=== PATIENT | male | born 1950 | race Caucasian/White ===

== ENCOUNTER 2017-08-21 10:35 | Emergency (ER) | payer OTHER ==
[2017-08-21] MEDS: SOD CHLORIDE 0.9% 1,000 ML IV (14:30)
[2017-08-21] MEDS: HYDROmorphONE 1 MG/ML SYG IV (14:42)
[2017-08-21 14:55] LABS: ADD MAN DIFF? NO
[2017-08-21 14:57] LABS: WHITE BLOOD COUNT 16.1 10^3/ul (4.8-10.8)
[2017-08-21 14:57] LABS: BASOPHILS % 0.2 % (0.0-2.0); EOSINOPHILS % 0.1 % (0.0-7.0); HEMATOCRIT 40.2 % (42.0-52.0); HEMOGLOBIN 13.6 g/dl (14.0-18.0); LYMPHOCYTES # 0.6 10^3/ul (0.8-2.9); LYMPHOCYTES % 3.9 % (15.0-51.0); MEAN CORPUSCULAR HEMOGLOBIN 31.8 pg (29.0-33.0); MEAN CORPUSCULAR HGB CONC 33.8 g/dl (32.0-37.0); MEAN CORPUSCULAR VOLUME 93.9 fl (82.0-101.0); MEAN PLATELET VOLUME 8.6 fl (7.4-10.4); MONOCYTE # 0.9 10^3/ul (0.3-0.9); MONOCYTES % 5.5 % (0.0-11.0); NEUTROPHIL # 14.4 10^3/ul (1.6-7.5); NEUTROPHILS % 89.7 % (39.0-77.0); PLATELET COUNT 394 10^3/UL (140-415); RED BLOOD COUNT 4.28 10^6/ul (4.70-6.10); RED CELL DISTRIBUTION WIDTH 14.7 % (11.5-14.5)
[2017-08-21 15:24] LABS: ANION GAP 28 (8-16); BLOOD UREA NITROGEN 73 mg/dl (7-20); CALCIUM 10.1 mg/dl (8.4-10.2); CARBON DIOXIDE 25 mmol/L (21-31); CHLORIDE 85 mmol/L (97-110); GLUCOSE 107 mg/dl (70-220); POTASSIUM 4.5 mmol/L (3.5-5.1); SODIUM 133 mmol/L (135-144)
[2017-08-21 15:36] LABS: CREATININE 6.57 mg/dl (0.61-1.24)
[2017-08-21] MEDS: HYDROmorphONE 2 MG/ML SYG IM (15:41)
[2017-08-21] MEDS ORDERED: PIPER-TAZO 2.25 GM (PMX) 50 ML IVPB (17:00)
== END 2017-08-21 17:47 | disposition left against medical advice (07) ==
LOC: E/R 10:35
DX: K40.30 Unilateral inguinal hernia, with obstruction, without gangrene, not specified as recurrent (principal); D64.9 Anemia, unspecified; D63.1 Anemia in chronic kidney disease; N18.9 Chronic kidney disease, unspecified
CPT/HCPCS: 74176; 80048; 85025; 96372; 96374; 99285-25

== ENCOUNTER 2017-08-23 13:31 | Inpatient (IN) | payer OTHER ==
[2017-08-23 14:35] LABS: ADD MAN DIFF? NO
[2017-08-23 14:40] LABS: WHITE BLOOD COUNT 15.8 10^3/ul (4.8-10.8)
[2017-08-23 14:40] LABS: ABNORMAL IP MESSAGE 1; BASOPHILS % 0.2 % (0.0-2.0); EOSINOPHILS % 0.1 % (0.0-7.0); HEMATOCRIT 37.3 % (42.0-52.0); HEMOGLOBIN 12.9 g/dl (14.0-18.0); LYMPHOCYTES # 0.6 10^3/ul (0.8-2.9); MEAN CORPUSCULAR HEMOGLOBIN 31.4 pg (29.0-33.0); MEAN CORPUSCULAR HGB CONC 34.6 g/dl (32.0-37.0); MEAN CORPUSCULAR VOLUME 90.8 fl (82.0-101.0); MONOCYTE # 1.6 10^3/ul (0.3-0.9); MONOCYTES % 10.2 % (0.0-11.0); NEUTROPHIL # 13.5 10^3/ul (1.6-7.5); NEUTROPHILS % 85.2 % (39.0-77.0); PLATELET COUNT 435 10^3/UL (140-415); POSITIVE DIFF @See below; RED BLOOD COUNT 4.11 10^6/ul (4.70-6.10); RED CELL DISTRIBUTION WIDTH 14.6 % (11.5-14.5)
[2017-08-23] MEDS: LIDOCAINE 1% (MPF) 5 ML VIAL SC (15:00)
[2017-08-23 15:06] LABS: ALANINE AMINOTRANSFERASE 32 IU/L (13-69); ALBUMIN 4.7 g/dl (3.3-4.9); ALBUMIN/GLOBULIN RATIO 1.27; ALKALINE PHOSPHATASE 98 IU/L (42-121); ANION GAP 36 (8-16); ASPARTATE AMINO TRANSFERASE 19 IU/L (15-46); CALCIUM 9.4 mg/dl (8.4-10.2); CARBON DIOXIDE 22 mmol/L (21-31); CHLORIDE 81 mmol/L (97-110); GLUCOSE 83 mg/dl (70-220); LIPASE 173 U/L (23-300); POTASSIUM 5.8 mmol/L (3.5-5.1); SODIUM 133 mmol/L (135-144); TOTAL PROTEIN 8.4 g/dl (6.1-8.1)
[2017-08-23 15:13] LABS: ETHANOL < 10.0 mg/dl; LACTIC ACID 2.3 mmol/L (0.5-2.0)
[2017-08-23 15:14] LABS: BLOOD UREA NITROGEN 122 mg/dl (7-20); CREATININE 9.36 mg/dl (0.61-1.24)
[2017-08-23 15:17] LABS: TROPONIN-I 0.035 ng/ml (0.00-0.12)
[2017-08-23] MEDS: ALBUTEROL 0.5% (NEB) 2.5 MG/0.5 ML AMP INH (15:42)
[2017-08-23] MEDS: SOD CHLORIDE 0.9% 1,000 ML IV (15:52)
[2017-08-23] MEDS: INSULIN REGULAR, HUMAN 100 UNIT/1 ML 3ML VIAL IV (15:53)
[2017-08-23] MEDS: ONDANSETRON 4 MG INJ IV (16:36)
[2017-08-23] MEDS: GLUCAGON 1 MG INJ IM (16:37)
[2017-08-23] MEDS: SOD CHLORIDE 0.9% 2,250 ML IV (16:37)
[2017-08-23] MEDS: DEXTROSE 50% 50 ML SYRINGE IV (16:37)
[2017-08-23] MEDS: PIPER-TAZO 2.25 GM (PMX) 50 ML IVPB (16:58)
[2017-08-23] MEDS: HYDROmorphONE 1 MG/ML SYG IV (17:59)
[2017-08-23] MEDS: LORAZEPAM 2 MG INJ IV (17:59)
[2017-08-23] MEDS ORDERED: SOD CHLORIDE 0.9% 2,250 ML IV (18:30)
[2017-08-23] MEDS ORDERED: VANCOMYCIN IV PER PHARMACY XX (18:30)
[2017-08-23] MEDS ORDERED: CASPOFUNGIN 70 MG in SOD CHLORIDE 0.9% 250 ML IVPB (18:30)
[2017-08-23] MEDS ORDERED: NORepinephrine 8MG/250 ML (PMX 250 ML IV (18:30)
[2017-08-23] MEDS: HALOPERIDOL 5 MG INJ IM (18:46)
[2017-08-23] MEDS ORDERED: ALBUTEROL/IPRATROPIUM (NEB) 3 ML AMP HHN (19:00)
[2017-08-23] MEDS ORDERED: LORAZEPAM 2 MG INJ IV (19:00)
[2017-08-23] MEDS ORDERED: IPRATROPIUM (NEB) 0.5 MG/2.5 ML AMP NEB (19:00)
[2017-08-23] MEDS ORDERED: HYDROmorphONE 0.5 MG/0.5 ML SYG IV (19:00)
[2017-08-23] MEDS ORDERED: ONDANSETRON 4 MG INJ IV (19:00)
[2017-08-23] MEDS: DIPHENHYDRAMINE 50 MG INJ IV (19:02)
[2017-08-23] MEDS ORDERED: LIDOCAINE 1% (MPF) 30 ML INJ (19:23)
[2017-08-23] MEDS ORDERED: HYDROmorphONE 1 MG/ML SYG IV ×2 (19:30→23:00)
[2017-08-23] MEDS ORDERED: LACTATED RINGER'S 1,000 ML IV (19:30)
[2017-08-23] MEDS ORDERED: HALOPERIDOL 5 MG INJ IM (19:30)
[2017-08-23] MEDS: MIDAZOLAM 1 MG/ML 2 ML INJ IV (19:40)
[2017-08-23] MEDS: MIDAZOLAM (DRIP) 50 mg/50 mL 50 ML IV (19:56)
[2017-08-23] MEDS ORDERED: SODIUM BICARBONATE (IV ADD) 150 MEQ in DEXTROSE 5% 1,000 ML IVPB (20:00)
[2017-08-23] MEDS ORDERED: VANCOMYCIN 1 GM (PMX) 250 ML IVPB (20:00)
[2017-08-23] MEDS: NORepinephrine 8MG/250 ML (PMX 250 ML IV (20:01)
[2017-08-23] MEDS ORDERED: GLUCAGON 1 MG INJ IM (20:30)
[2017-08-23] MEDS ORDERED: GLUCOSE GEL 15 GRAM TUBE PO ×2 (20:30)
[2017-08-23] MEDS ORDERED: GLUCOSE GEL 15 GRAM TUBE BUCCAL (20:30)
[2017-08-23] MEDS ORDERED: DEXTROSE 50% 50 ML SYRINGE IV ×2 (20:30)
[2017-08-23] MEDS: ALBUTEROL/IPRATROPIUM (NEB) 3 ML AMP HHN (20:39)
[2017-08-23 22:14] LABS: LACTIC ACID 1.4 mmol/L (0.5-2.0)
[2017-08-23 22:21] LABS: CREATINE KINASE 266 IU/L (23-200)
[2017-08-23 22:24] LABS: PHOSPHORUS 10.4 mg/dl (2.5-4.9)
[2017-08-23 22:24] LABS: ANION GAP 27 (8-16); BLOOD UREA NITROGEN 119 mg/dl (7-20); C-REACTIVE PROTEIN 8.6 mg/dl (0.0-0.9); CALCIUM 7.8 mg/dl (8.4-10.2); CARBON DIOXIDE 20 mmol/L (21-31); CHLORIDE 92 mmol/L (97-110); GLUCOSE 113 mg/dl (70-220); SODIUM 134 mmol/L (135-144); URIC ACID 12.2 mg/dl (3.1-7.9)
[2017-08-23 22:30] LABS: CREATININE 8.54 mg/dl (0.61-1.24)
[2017-08-23 22:35] LABS: CK INDEX 5.1; TROPONIN-I 0.046 ng/ml (0.00-0.12)
[2017-08-23 22:56] LABS: IONIZED CALCIUM 0.9 mmol/L (1.1-1.4)
[2017-08-24] MEDS ORDERED: ETOMIDATE 20 MG INJ
[2017-08-24 00:05] LABS: AADO2 Arterial 520.4 mmHg (7.0-24.0); Allen Test ACCEPTAB; Arterial Base Excess -2.3 mmol/L (-3.0-3); Arterial Blood Gas Oxygen Sat 97.5 mmHG (95.0-98.0); Arterial COHb 0.1 % (0.0-3.0); Arterial Fraction of Oxyhgb 97.1 % (93.0-99.0); Arterial HCO3 26.4 mmol/L (22.0-26.0); Arterial MetHb 0.3 % (0.0-1.5); Arterial pCO2 63.8 mmhg (35-45); MODE VENT - AC; Site Right Radial
[2017-08-24] MEDS ORDERED: PROVENTIL HFA 6.7GM INHALER (00:27)
[2017-08-24] MEDS ORDERED: PHENYLephrine (100 MCG/ML) 5ML SYG (00:56)
[2017-08-24] MEDS: HEPARIN 1000 UNITS/ML 10 ML INJ (01:27)
[2017-08-24] MEDS: BUPIVACAINE 0.25%/EPI (SDV) 30 ML INJ INJ (01:27)
[2017-08-24] MEDS: LIDOCAINE 1% (MPF) 30 ML INJ INJ (01:27)
[2017-08-24] MEDS ORDERED: ACCU-CHEK XX (02:00)
[2017-08-24] MEDS ORDERED: ROCURONIUM 50 MG INJ ×2 (02:05)
[2017-08-24] MEDS ORDERED: EPINEPHrine 0.1 MG/ML SYG (03:07)
[2017-08-24] MEDS: NORepinephrine 8MG/250 ML (PMX 250 ML IV (03:12)
[2017-08-24 03:44] LABS: AADO2 Arterial 530.4 mmHg (7.0-24.0); Arterial Base Excess -1.4 mmol/L (-3.0-3); Arterial Blood Gas Oxygen Sat 97.8 mmHG (95.0-98.0); Arterial COHb 0.3 % (0.0-3.0); Arterial Fraction of Oxyhgb 97.3 % (93.0-99.0); Arterial HCO3 25.6 mmol/L (22.0-26.0); Arterial MetHb 0.2 % (0.0-1.5); Arterial Total Hemglobin 12.5 g/dl (12.0-18.0); Arterial pCO2 52.9 mmhg (35-45); MODE VENT - AC; Site A-Line
[2017-08-24] MEDS: LACTATED RINGER'S 1,000 ML IV ×6 (03:59→08:47)
[2017-08-24] MEDS: VASOPRESSIN 60 UNIT in DEXTROSE 5% 57 ML IV ×3 (03:59→19:00)
[2017-08-24] MEDS ORDERED: DEXTROSE 5%-0.9% NACL 1,000 ML IV (04:00)
[2017-08-24] MEDS: ACCU-CHEK XX ×19 (04:00→23:08)
[2017-08-24] MEDS: SODIUM BICARBONATE (IV ADD) 100 MEQ in DEXTROSE 5% 900 ML IV ×4 (04:35→21:30)
[2017-08-24 04:56] LABS: WHITE BLOOD COUNT 1.5 10^3/ul (4.8-10.8)
[2017-08-24 04:56] LABS: ABNORMAL IP MESSAGE 1; HEMATOCRIT 33.3 % (42.0-52.0); HEMOGLOBIN 11.2 g/dl (14.0-18.0); MEAN CORPUSCULAR HEMOGLOBIN 30.9 pg (29.0-33.0); MEAN CORPUSCULAR HGB CONC 33.6 g/dl (32.0-37.0); MEAN PLATELET VOLUME 9.2 fl (7.4-10.4); PLATELET COUNT 338 10^3/UL (140-415); POSITIVE DIFF @See below; RED BLOOD COUNT 3.62 10^6/ul (4.70-6.10); RED CELL DISTRIBUTION WIDTH 14.6 % (11.5-14.5)
[2017-08-24 05:03] LABS: ADD MAN DIFF? YES
[2017-08-24 05:17] LABS: ALANINE AMINOTRANSFERASE 26 IU/L (13-69); ALBUMIN 2.7 g/dl (3.3-4.9); ALBUMIN/GLOBULIN RATIO 1.03; ALKALINE PHOSPHATASE 60 IU/L (42-121); ANION GAP 23 (8-16); ASPARTATE AMINO TRANSFERASE 16 IU/L (15-46); BLOOD UREA NITROGEN 109 mg/dl (7-20); CALCIUM 6.9 mg/dl (8.4-10.2); CARBON DIOXIDE 23 mmol/L (21-31); CHLORIDE 94 mmol/L (97-110); GLUCOSE 260 mg/dl (70-220); POTASSIUM 3.7 mmol/L (3.5-5.1); SODIUM 136 mmol/L (135-144); TOTAL PROTEIN 5.3 g/dl (6.1-8.1)
[2017-08-24 05:25] LABS: CREATININE 7.69 mg/dl (0.61-1.24)
[2017-08-24 05:26] LABS: LACTIC ACID 3.4 mmol/L (0.5-2.0)
[2017-08-24] MEDS ORDERED: CLINDAMYCIN 600 MG/D5W (PMX) 50 ML IVPB (06:00)
[2017-08-24] MEDS ORDERED: DEXTROSE 50% 50 ML SYRINGE IV ×2 (06:00)
[2017-08-24] MEDS ORDERED: PANTOPRAZOLE 40 MG INJ IV (06:00)
[2017-08-24] MEDS ORDERED: INSULIN HUMAN REGULAR 100 UNIT in SOD CHLORIDE 0.9% 99 ML IV (06:00)
[2017-08-24 06:25] LABS: CREATINE KINASE 254 IU/L (23-200)
[2017-08-24 06:26] LABS: MAGNESIUM 2.1 mg/dl (1.7-2.5)
[2017-08-24] MEDS: PANTOPRAZOLE 40 MG INJ IV ×2 (06:35→17:40)
[2017-08-24] MEDS: metroNIDAZOLE 500 MG/NS (PMX) 100 ML IVPB ×3 (06:36→23:09)
[2017-08-24 06:39] LABS: CK INDEX 5.2; TROPONIN-I 0.047 ng/ml (0.00-0.12)
[2017-08-24] MEDS: FLUCONAZOLE 400 MG/NS (PMX) 200 ML IVPB ×2 (06:44→08:50)
[2017-08-24 06:54] LABS: HEMOGLOBIN A1C 5.5 % (0-5.9)
[2017-08-24 07:28] LABS: ANISOCYTOSIS 2+ (0-0); BAND NEUTROPHILS #M 0.5 10^3/ul (0.0-0.6); BAND NEUTROPHILS % (M) 36 % (0-4); BURR CELLS 3+ (0-0); GIANT THROMBO% (M) 8 % (0-0); LYMPHOCYTES #M 0.3 10^3/ul (0.8-2.9); LYMPHOCYTES % (M) 20 % (15-51); METAMYELOCYTES %M 5 % (0-0); MICROCYTOSIS 2+ (0-0); MONOCYTES % (M) 6 % (0-11); PLATELET ESTIMATE NORMAL; POIKILOCYTOSIS 3+ (0-0); REACTIVE LYMPHOCYTES% (M) 1 % (0-0); SEG NEUT #M 0.5 10^3/ul (1.6-7.5); SEGMENTED NEUTROPHILS (M) % 32 % (39-77); SMUDGE%M 11 % (0-0)
[2017-08-24] MEDS: INSULIN ASPART [NOVOLOG] 3 ML PEN SC ×2 (07:35→11:30)
[2017-08-24 07:42] LABS: CHOL/HDL RATIO 2.8 RATIO; HDL CHOLESTEROL 40 mg/dl (30-78); LDL CHOLESTEROL,CALCULATED 57 mg/dl; TRIGLYCERIDES 91 mg/dl (0-149)
[2017-08-24 07:42] LABS: CHOLESTEROL 115 mg/dl (100-200); URIC ACID 11.2 mg/dl (3.1-7.9)
[2017-08-24] MEDS: EPINEPHrine 4 MG in SOD CHLORIDE 0.9% 246 ML IV ×2 (08:44→18:59)
[2017-08-24] MEDS: SOD CHLORIDE 0.9% 500 ML IV* (08:48)
[2017-08-24] MEDS: VANCOMYCIN 1.5 GM in DEXTROSE 5% 500 ML IVPB (08:50)
[2017-08-24] MEDS: PROPOFOL 100 ML IV ×2 (08:51→14:39)
[2017-08-24] MEDS: INSULIN HUMAN REGULAR 100 UNIT in SOD CHLORIDE 0.9% 99 ML IV (09:16)
[2017-08-24] MEDS: IPRATROPIUM (HFA) 12.9 GM INHALER INH ×5 (09:24→21:58)
[2017-08-24] MEDS: ALBUTEROL HFA 8 GM INHALER INH ×5 (09:25→21:58)
[2017-08-24] MEDS: ALBUTEROL/IPRATROPIUM (NEB) 3 ML AMP HHN ×3 (10:56→10:57)
[2017-08-24] MEDS: MIDAZOLAM (DRIP) 50 mg/50 mL 50 ML IV ×2 (11:03→20:02)
[2017-08-24] MEDS: PIPER-TAZO 2.25 GM (PMX) 50 ML IVPB ×2 (11:57→20:51)
[2017-08-24] MEDS: VANCOMYCIN 1.25 GM in SOD CHLORIDE 0.45% 250 ML IVPB (12:23)
[2017-08-24] MEDS: LORAZEPAM 2 MG INJ IV (13:00)
[2017-08-24 15:13] LABS: WHITE BLOOD COUNT 3.3 10^3/ul (4.8-10.8)
[2017-08-24 15:13] LABS: ABNORMAL IP MESSAGE 1; HEMATOCRIT 30.6 % (42.0-52.0); HEMOGLOBIN 10.5 g/dl (14.0-18.0); MEAN CORPUSCULAR HEMOGLOBIN 31.3 pg (29.0-33.0); MEAN CORPUSCULAR HGB CONC 34.3 g/dl (32.0-37.0); MEAN CORPUSCULAR VOLUME 91.3 fl (82.0-101.0); MEAN PLATELET VOLUME 8.6 fl (7.4-10.4); PLATELET COUNT 210 10^3/UL (140-415); POSITIVE DIFF @See below; RED BLOOD COUNT 3.35 10^6/ul (4.70-6.10); RED CELL DISTRIBUTION WIDTH 14.6 % (11.5-14.5)
[2017-08-24 15:17] LABS: ADD MAN DIFF? YES
[2017-08-24 15:29] LABS: SODIUM,URINE RANDOM 63 mmol/L (30-90)
[2017-08-24 15:30] LABS: ADD UMIC YES; UR ASCORBIC ACID NEGATIVE (NEGATIVE); UR BILIRUBIN (Dip) NEGATIVE (NEGATIVE); UR BLOOD (Dip) 2+ mg/dL (NEGATIVE); UR CLARITY SLIGHTLY CLOUDY (CLEAR); UR COLOR YELLOW (YELLOW); UR GLUCOSE (Dip) NEGATIVE (NEGATIVE); UR KETONES (Dip) NEGATIVE (NEGATIVE); UR LEUKOCYTE ESTERASE (Dip) NEGATIVE Leu/ul (NEGATIVE); UR NITRITE (Dip) NEGATIVE (NEGATIVE); UR RBC 10 /HPF (0-5); UR SPECIFIC GRAVITY (Dip) 1.017 (1.003-1.030); UR TOTAL PROTEIN (Dip) 2+ mg/dl (NEGATIVE); UR UROBILINOGEN (Dip) NEGATIVE (NEGATIVE); UR WBC 1 /HPF (0-5)
[2017-08-24 15:36] LABS: ANION GAP 16 (8-16); BLOOD UREA NITROGEN 86 mg/dl (7-20); CALCIUM 6.9 mg/dl (8.4-10.2); CARBON DIOXIDE 27 mmol/L (21-31); CHLORIDE 96 mmol/L (97-110); CREATININE 5.01 mg/dl (0.61-1.24); GLUCOSE 127 mg/dl (70-220); MAGNESIUM 1.5 mg/dl (1.7-2.5); PHOSPHORUS 5.2 mg/dl (2.5-4.9); POTASSIUM 3.8 mmol/L (3.5-5.1); SODIUM 135 mmol/L (135-144)
[2017-08-24 15:42] LABS: AMPHETAMINE/METHAMPHETAMINE Negative (NEGATIVE); BARBITURATES Negative (NEGATIVE); BENZODIAZEPINES Positive (NEGATIVE); CANNABINOIDS Negative (NEGATIVE); COCAINE Negative (NEGATIVE); OPIATES Positive (NEGATIVE)
[2017-08-24 15:51] LABS: INR 1.17; PROTIME 15.1 Sec (11.9-14.9); PT RATIO 1.2
[2017-08-24 15:52] LABS: PARTIAL THROMBOPLASTIN TIME 32.1 Sec (25.0-35.0)
[2017-08-24 16:16] LABS: CREATININE,URINE RANDOM 103.24 mg/dl (20-370); PROTEIN/CREAT RATIO 0.71 RATIO
[2017-08-24 16:23] LABS: Arterial Base Excess 1.6 mmol/L (-3.0-3); Arterial Blood Gas Oxygen Sat 98.6 mmHG (95.0-98.0); Arterial COHb 0.3 % (0.0-3.0); Arterial Fraction of Oxyhgb 98.2 % (93.0-99.0); Arterial HCO3 24.6 mmol/L (22.0-26.0); Arterial MetHb 0.1 % (0.0-1.5); Arterial Total Hemglobin 11.8 g/dl (12.0-18.0); Arterial pCO2 33.7 mmhg (35-45); MODE VENT - AC; Site A-Line
[2017-08-24 16:31] LABS: ANISOCYTOSIS 1+ (0-0); BAND NEUTROPHILS #M 2.3 10^3/ul (0.0-0.6); BAND NEUTROPHILS % (M) 72 % (0-4); GIANT THROMBO% (M) 2 % (0-0); LYMPHOCYTES #M 0.1 10^3/ul (0.8-2.9); LYMPHOCYTES % (M) 4 % (15-51); METAMYELOCYTES #M 0.1 10^3/ul (0.0-0.0); METAMYELOCYTES %M 4 % (0-0); MICROCYTOSIS 1+ (0-0); MONOCYTES % (M) 2 % (0-11); PLATELET ESTIMATE NORMAL; POIKILOCYTOSIS 1+ (0-0); POLYCHROMASIA 3+ (0-0); SEG NEUT #M 0.7 10^3/ul (1.6-7.5); SEGMENTED NEUTROPHILS (M) % 18 % (39-77); SMUDGE%M 3 % (0-0)
[2017-08-24] MEDS: morphine 2 MG INJ IV ×3 (17:40→22:25)
[2017-08-24] MEDS: MAGNESIUM SULFATE 2 GM/50 ML 50 ML IVPB (17:40)
[2017-08-24] MEDS: CALCIUM GLUCONATE 10% 1 GM in DEXTROSE 5% 100 ML IVPB (17:43)
[2017-08-24] MEDS ORDERED: CASPOFUNGIN 50 MG in SOD CHLORIDE 0.9% 250 ML IVPB (18:30)
[2017-08-24] MEDS: ACETAMINOPHEN 1000MG/100ML IV 100 ML IVPB ×2 (20:30→21:51)
[2017-08-24] MEDS: METOCLOPRAMIDE 10 MG INJ IV (20:55)
[2017-08-24] MEDS: SOD CHLORIDE 0.9% 1,000 ML IV ×2 (20:55→22:11)
[2017-08-24] MEDS: SODIUM BICARBONATE (IV ADD) 100 MEQ in DEXTROSE 5% 1,000 ML IV (20:55)
[2017-08-24 22:02] LABS: ANION GAP 13 (8-16); BLOOD UREA NITROGEN 74 mg/dl (7-20); CALCIUM 7.1 mg/dl (8.4-10.2); CARBON DIOXIDE 30 mmol/L (21-31); CHLORIDE 94 mmol/L (97-110); CREATININE 3.32 mg/dl (0.61-1.24); GLUCOSE 146 mg/dl (70-220); PHOSPHORUS 4.9 mg/dl (2.5-4.9); POTASSIUM 3.7 mmol/L (3.5-5.1); SODIUM 133 mmol/L (135-144)
[2017-08-24] MEDS ORDERED: ALBUMIN HUMAN 25% 100 ML (22:04)
[2017-08-24] MEDS: ALBUMIN HUMAN 25% 100 ML IV (22:11)
[2017-08-24 22:36] LABS: WHITE BLOOD COUNT 7.9 10^3/ul (4.8-10.8)
[2017-08-24 22:36] LABS: ABNORMAL IP MESSAGE 1; HEMOGLOBIN 10.1 g/dl (14.0-18.0); MEAN CORPUSCULAR HEMOGLOBIN 30.7 pg (29.0-33.0); MEAN CORPUSCULAR HGB CONC 33.7 g/dl (32.0-37.0); MEAN CORPUSCULAR VOLUME 91.2 fl (82.0-101.0); MEAN PLATELET VOLUME 9.6 fl (7.4-10.4); PLATELET COUNT 174 10^3/UL (140-415); POSITIVE DIFF @See below; RED BLOOD COUNT 3.29 10^6/ul (4.70-6.10); RED CELL DISTRIBUTION WIDTH 14.5 % (11.5-14.5)
[2017-08-24 22:39] LABS: INR 1.16; PT RATIO 1.2
[2017-08-24 22:40] LABS: PARTIAL THROMBOPLASTIN TIME 30.4 Sec (25.0-35.0)
[2017-08-24 22:41] LABS: ADD MAN DIFF? YES
[2017-08-25 00:18] LABS: ANISOCYTOSIS 2+ (0-0); BAND NEUTROPHILS #M 4.5 10^3/ul (0.0-0.6); BAND NEUTROPHILS % (M) 57 % (0-4); EOSINOPHILS % (M) 1 % (0-7); LYMPHOCYTES #M 0.2 10^3/ul (0.8-2.9); LYMPHOCYTES % (M) 3 % (15-51); METAMYELOCYTES #M 0.4 10^3/ul (0.0-0.0); METAMYELOCYTES %M 6 % (0-0); MICROCYTOSIS 1+ (0-0); MONOCYTE #M 0.4 10^3/ul (0.3-0.9); MONOCYTES % (M) 6 % (0-11); PLATELET ESTIMATE NORMAL; POLYCHROMASIA 3+ (0-0); SEG NEUT #M 2.6 10^3/ul (1.6-7.5); SEGMENTED NEUTROPHILS (M) % 28 % (39-77); SMUDGE%M 1 % (0-0)
[2017-08-25] MEDS: ACCU-CHEK XX ×10 (00:18→08:41)
[2017-08-25] MEDS: IPRATROPIUM (HFA) 12.9 GM INHALER INH ×6 (01:18→21:02)
[2017-08-25] MEDS: ALBUTEROL HFA 8 GM INHALER INH ×6 (01:18→21:02)
[2017-08-25] MEDS: SODIUM BICARBONATE (IV ADD) 100 MEQ in DEXTROSE 5% 900 ML IV ×2 (02:06→06:01)
[2017-08-25] MEDS: MIDAZOLAM (DRIP) 50 mg/50 mL 50 ML IV ×4 (02:20→19:28)
[2017-08-25] MEDS ORDERED: ACETAMINOPHEN 1000MG/100ML IV 100 ML IVPB (02:30)
[2017-08-25] MEDS: PROPOFOL 100 ML IV ×2 (03:25→15:30)
[2017-08-25 05:02] LABS: ABNORMAL IP MESSAGE 1; HEMATOCRIT 26.5 % (42.0-52.0); MEAN CORPUSCULAR HEMOGLOBIN 30.9 pg (29.0-33.0); MEAN CORPUSCULAR VOLUME 91.1 fl (82.0-101.0); MEAN PLATELET VOLUME 8.9 fl (7.4-10.4); PLATELET COUNT 134 10^3/UL (140-415); POSITIVE DIFF @See below; RED BLOOD COUNT 2.91 10^6/ul (4.70-6.10); RED CELL DISTRIBUTION WIDTH 14.4 % (11.5-14.5)
[2017-08-25 05:02] LABS: WHITE BLOOD COUNT 8.9 10^3/ul (4.8-10.8)
[2017-08-25] MEDS: FLUCONAZOLE 400 MG/NS (PMX) 200 ML IVPB (05:03)
[2017-08-25] MEDS: PANTOPRAZOLE 40 MG INJ IV ×2 (05:06→17:56)
[2017-08-25] MEDS: morphine 2 MG INJ IV ×2 (05:11→10:35)
[2017-08-25 05:15] LABS: ADD MAN DIFF? YES
[2017-08-25] MEDS: VASOPRESSIN 60 UNIT in DEXTROSE 5% 57 ML IV (05:25)
[2017-08-25] MEDS: INSULIN HUMAN REGULAR 100 UNIT in SOD CHLORIDE 0.9% 99 ML IV (05:26)
[2017-08-25 05:33] LABS: ALANINE AMINOTRANSFERASE 31 IU/L (13-69); ALBUMIN 2.6 g/dl (3.3-4.9); ALBUMIN/GLOBULIN RATIO 1.08; ALKALINE PHOSPHATASE 45 IU/L (42-121); ANION GAP 12 (8-16); ASPARTATE AMINO TRANSFERASE 18 IU/L (15-46); BILIRUBIN,INDIRECT 0.1 mg/dl (0-1.1); BILIRUBIN,TOTAL 0.1 mg/dl (0.2-1.3); BLOOD UREA NITROGEN 61 mg/dl (7-20); CARBON DIOXIDE 32 mmol/L (21-31); CHLORIDE 97 mmol/L (97-110); CREATININE 1.99 mg/dl (0.61-1.24); GLUCOSE 113 mg/dl (70-220); MAGNESIUM 1.9 mg/dl (1.7-2.5); SODIUM 138 mmol/L (135-144)
[2017-08-25 05:37] LABS: POTASSIUM 2.9 mmol/L (3.5-5.1)
[2017-08-25 05:37] LABS: LACTIC ACID 2.7 mmol/L (0.5-2.0)
[2017-08-25] MEDS: POTASSIUM CHLORIDE 50 ML IVPB ×5 (06:40→21:41)
[2017-08-25] MEDS: metroNIDAZOLE 500 MG/NS (PMX) 100 ML IVPB ×3 (07:03→23:10)
[2017-08-25 07:36] LABS: ANISOCYTOSIS 1+ (0-0); BAND NEUTROPHILS #M 5.9 10^3/ul (0.0-0.6); BAND NEUTROPHILS % (M) 67 % (0-4); EOSINOPHILS % (M) 1 % (0-7); LYMPHOCYTES #M 0.4 10^3/ul (0.8-2.9); LYMPHOCYTES % (M) 5 % (15-51); METAMYELOCYTES #M 0.6 10^3/ul (0.0-0.0); METAMYELOCYTES %M 7 % (0-0); MICROCYTOSIS 1+ (0-0); MONOCYTE #M 0.2 10^3/ul (0.3-0.9); MONOCYTES % (M) 3 % (0-11); MYELOCYTES % (M) 1 % (0-0); PLATELET ESTIMATE DECREASED; POLYCHROMASIA 3+ (0-0); REACTIVE LYMPHOCYTES% (M) 1 % (0-0); SEG NEUT #M 1.9 10^3/ul (1.6-7.5); SEGMENTED NEUTROPHILS (M) % 15 % (39-77)
[2017-08-25 07:51] LABS: AADO2 Arterial 179.7 mmHg (7.0-24.0); Arterial Base Excess 4.6 mmol/L (-3.0-3); Arterial Blood Gas Oxygen Sat 97.2 mmHG (95.0-98.0); Arterial COHb 0.3 % (0.0-3.0); Arterial Fraction of Oxyhgb 96.7 % (93.0-99.0); Arterial HCO3 27.4 mmol/L (22.0-26.0); Arterial MetHb 0.2 % (0.0-1.5); Arterial Total Hemglobin 9.7 g/dl (12.0-18.0); Arterial pCO2 33.6 mmhg (35-45); MODE VENT - AC; Site A-Line
[2017-08-25] MEDS: PIPER-TAZO 2.25 GM (PMX) 50 ML IVPB ×3 (09:04→23:10)
[2017-08-25] MEDS: D5W-0.45 NACL + KCL 20 MEQ 1,000 ML IV ×2 (10:35→23:20)
[2017-08-25] MEDS: MAGNESIUM SULFATE 1 GM/D5W 100 ML IVPB (11:10)
[2017-08-25] MEDS ORDERED: GLUCOSE GEL 15 GRAM TUBE BUCCAL (11:30)
[2017-08-25] MEDS ORDERED: GLUCAGON 1 MG INJ IM (11:30)
[2017-08-25] MEDS ORDERED: INSULIN ASPART [NOVOLOG] 3 ML PEN SC ×2 (11:30→13:00)
[2017-08-25] MEDS ORDERED: DEXTROSE 50% 50 ML SYRINGE IV ×2 (11:30)
[2017-08-25] MEDS ORDERED: GLUCOSE GEL 15 GRAM TUBE PO ×2 (11:30)
[2017-08-25] MEDS: FENTAnyl (DRIP) 1000 mcg/100mL 100 ML IV ×2 (12:20→21:33)
[2017-08-25] MEDS: Insulin NOVOLOG SS MILD Algorithm (NPO/TPN/ENTERAL FEEDS) SC ×3 (13:00→21:00)
[2017-08-25] MEDS: MULTIVITAMINS 10 ML, THIAMINE 100 MG, FOLIC ACID 1 MG in SOD CHLORIDE 0.9% 1,000 ML IVPB (13:22)
[2017-08-25 16:21] LABS: ANION GAP 10 (8-16); BLOOD UREA NITROGEN 45 mg/dl (7-20); CALCIUM 6.8 mg/dl (8.4-10.2); CARBON DIOXIDE 29 mmol/L (21-31); CHLORIDE 101 mmol/L (97-110); CREATININE 1.02 mg/dl (0.61-1.24); GLUCOSE 101 mg/dl (70-220); SODIUM 137 mmol/L (135-144)
[2017-08-25] MEDS ORDERED: PIPER-TAZO 2.25 GM (PMX) 50 ML IVPB (22:00)
[2017-08-26] MEDS: Insulin NOVOLOG SS MILD Algorithm (NPO/TPN/ENTERAL FEEDS) SC ×6 (01:00→20:31)
[2017-08-26] MEDS: MIDAZOLAM (DRIP) 50 mg/50 mL 50 ML IV ×2 (01:18→07:47)
[2017-08-26] MEDS: IPRATROPIUM (HFA) 12.9 GM INHALER INH ×6 (01:37→21:11)
[2017-08-26] MEDS: ALBUTEROL HFA 8 GM INHALER INH ×6 (01:37→21:11)
[2017-08-26] MEDS ORDERED: ACCUCHECK AT 2AM (Patients on SS coverage) XX (02:00)
[2017-08-26] MEDS: VASOPRESSIN 60 UNIT in DEXTROSE 5% 57 ML IV ×2 (03:59→16:00)
[2017-08-26] MEDS: FLUCONAZOLE 400 MG/NS (PMX) 200 ML IVPB (05:24)
[2017-08-26] MEDS: metroNIDAZOLE 500 MG/NS (PMX) 100 ML IVPB ×3 (06:05→22:09)
[2017-08-26 06:24] LABS: WHITE BLOOD COUNT 16.4 10^3/ul (4.8-10.8)
[2017-08-26 06:24] LABS: ABNORMAL IP MESSAGE 1; HEMATOCRIT 26.9 % (42.0-52.0); HEMOGLOBIN 8.8 g/dl (14.0-18.0); MEAN CORPUSCULAR HEMOGLOBIN 30.9 pg (29.0-33.0); MEAN CORPUSCULAR HGB CONC 32.7 g/dl (32.0-37.0); MEAN CORPUSCULAR VOLUME 94.4 fl (82.0-101.0); PLATELET COUNT 127 10^3/UL (140-415); POSITIVE DIFF @See below; RED BLOOD COUNT 2.85 10^6/ul (4.70-6.10); RED CELL DISTRIBUTION WIDTH 14.6 % (11.5-14.5)
[2017-08-26 06:37] LABS: LACTIC ACID 1.5 mmol/L (0.5-2.0)
[2017-08-26 06:40] LABS: ANION GAP 9 (8-16); BLOOD UREA NITROGEN 30 mg/dl (7-20); CALCIUM 7.2 mg/dl (8.4-10.2); CARBON DIOXIDE 29 mmol/L (21-31); CHLORIDE 105 mmol/L (97-110); CREATININE 0.88 mg/dl (0.61-1.24); GLUCOSE 105 mg/dl (70-220); POTASSIUM 3.2 mmol/L (3.5-5.1); SODIUM 140 mmol/L (135-144)
[2017-08-26 07:03] LABS: ADD MAN DIFF? YES
[2017-08-26] MEDS: PIPER-TAZO 2.25 GM (PMX) 50 ML IVPB ×3 (07:29→22:09)
[2017-08-26 07:31] LABS: MAGNESIUM 2.1 mg/dl (1.7-2.5)
[2017-08-26 07:31] LABS: PHOSPHORUS 1.7 mg/dl (2.5-4.9)
[2017-08-26] MEDS: PANTOPRAZOLE 40 MG INJ IV ×2 (07:31→17:43)
[2017-08-26 07:38] LABS: VANCOMYCIN,RANDOM < 5.0 ug/ml
[2017-08-26 09:37] LABS: BAND NEUTROPHILS #M 0.1 10^3/ul (0.0-0.6); BAND NEUTROPHILS % (M) 1 % (0-4); GIANT THROMBO% (M) 2 % (0-0); MONOCYTE #M 0.1 10^3/ul (0.3-0.9); MONOCYTES % (M) 1 % (0-11); PLATELET ESTIMATE DECREASED; POLYCHROMASIA 1+ (0-0); SEG NEUT #M 16.1 10^3/ul (1.6-7.5); SEGMENTED NEUTROPHILS (M) % 98 % (39-77); SMUDGE%M 2 % (0-0)
[2017-08-26] MEDS: PROPOFOL 100 ML IV ×2 (10:00→15:30)
[2017-08-26] MEDS: MULTIVITAMINS 10 ML, THIAMINE 100 MG, FOLIC ACID 1 MG in SOD CHLORIDE 0.9% 1,000 ML IVPB (10:02)
[2017-08-26] MEDS: POTASSIUM PHOSPHATE 40 MEQ in SOD CHLORIDE 0.9% 250 ML IVPB (10:17)
[2017-08-26] MEDS: VANCOMYCIN 1.5 GM in SOD CHLORIDE 0.9% 250 ML IVPB (10:57)
[2017-08-26] MEDS: D5W-0.45 NACL + KCL 20 MEQ 1,000 ML IV (12:40)
[2017-08-26] MEDS: FENTAnyl (DRIP) 1000 mcg/100mL 100 ML IV (13:43)
[2017-08-26] MEDS ORDERED: TPN 1,000 ML IV (16:00)
[2017-08-26 16:52] LABS: AADO2 Arterial 188.9 mmHg (7.0-24.0); Arterial Base Excess 4.1 mmol/L (-3.0-3); Arterial Blood Gas Oxygen Sat 96.3 mmHG (95.0-98.0); Arterial COHb 0.3 % (0.0-3.0); Arterial Fraction of Oxyhgb 95.8 % (93.0-99.0); Arterial HCO3 27.3 mmol/L (22.0-26.0); Arterial MetHb 0.2 % (0.0-1.5); Arterial Total Hemglobin 9.2 g/dl (12.0-18.0); Arterial pCO2 35.6 mmhg (35-45); MODE VENT - AC; Site A-Line
[2017-08-26] MEDS: POTASSIUM PHOSPHATE 30 MM in DEXTROSE 5% 250 ML IV (17:38)
[2017-08-26] MEDS: DEXTROSE 5%-0.45% NACL 1,000 ML IV (17:49)
[2017-08-26] MEDS: TPN 1,000 ML IV (17:49)
[2017-08-26] MEDS: VANCOMYCIN 1.25 GM in SOD CHLORIDE 0.9% 250 ML IVPB (23:33)
[2017-08-27] MEDS: Insulin NOVOLOG SS MILD Algorithm (NPO/TPN/ENTERAL FEEDS) SC ×6 (01:00→21:00)
[2017-08-27] MEDS: IPRATROPIUM (HFA) 12.9 GM INHALER INH ×5 (01:42→21:24)
[2017-08-27] MEDS: ALBUTEROL HFA 8 GM INHALER INH ×5 (01:42→21:24)
[2017-08-27] MEDS: PROPOFOL 100 ML IV ×2 (03:30→15:02)
[2017-08-27] MEDS: VASOPRESSIN 60 UNIT in DEXTROSE 5% 57 ML IV ×2 (04:00→15:02)
[2017-08-27 05:12] LABS: HEMATOCRIT 26.1 % (42.0-52.0); HEMOGLOBIN 8.3 g/dl (14.0-18.0); MEAN CORPUSCULAR HEMOGLOBIN 30.9 pg (29.0-33.0); MEAN CORPUSCULAR HGB CONC 31.8 g/dl (32.0-37.0); PLATELET COUNT 114 10^3/UL (140-415); POSITIVE DIFF @See below; RED BLOOD COUNT 2.69 10^6/ul (4.70-6.10); RED CELL DISTRIBUTION WIDTH 15.1 % (11.5-14.5)
[2017-08-27 05:12] LABS: WHITE BLOOD COUNT 15.7 10^3/ul (4.8-10.8)
[2017-08-27 05:21] LABS: ADD MAN DIFF? YES
[2017-08-27 05:26] LABS: TRIGLYCERIDES 78 mg/dl (0-149)
[2017-08-27 05:29] LABS: ALANINE AMINOTRANSFERASE 27 IU/L (13-69); ALBUMIN 2.1 g/dl (3.3-4.9); ALBUMIN/GLOBULIN RATIO 0.84; ALKALINE PHOSPHATASE 77 IU/L (42-121); ANION GAP 12 (8-16); ASPARTATE AMINO TRANSFERASE 17 IU/L (15-46); BLOOD UREA NITROGEN 17 mg/dl (7-20); CALCIUM 7.4 mg/dl (8.4-10.2); CARBON DIOXIDE 29 mmol/L (21-31); CHLORIDE 109 mmol/L (97-110); GLUCOSE 125 mg/dl (70-220); POTASSIUM 3.9 mmol/L (3.5-5.1); SODIUM 146 mmol/L (135-144); TOTAL PROTEIN 4.6 g/dl (6.1-8.1)
[2017-08-27 05:31] LABS: MAGNESIUM 1.8 mg/dl (1.7-2.5)
[2017-08-27 05:31] LABS: PHOSPHORUS 2.2 mg/dl (2.5-4.9)
[2017-08-27] MEDS: MIDAZOLAM (DRIP) 50 mg/50 mL 50 ML IV (05:47)
[2017-08-27] MEDS: metroNIDAZOLE 500 MG/NS (PMX) 100 ML IVPB ×3 (05:48→22:32)
[2017-08-27] MEDS: PIPER-TAZO 2.25 GM (PMX) 50 ML IVPB (05:48)
[2017-08-27] MEDS: PANTOPRAZOLE 40 MG INJ IV ×2 (06:02→18:28)
[2017-08-27] MEDS: TPN 1,000 ML IV ×2 (06:42→22:33)
[2017-08-27] MEDS: FLUCONAZOLE 400 MG/NS (PMX) 200 ML IVPB (07:59)
[2017-08-27 09:01] LABS: PREALBUMIN 6.6 mg/dl (17.6-36.0)
[2017-08-27 09:35] LABS: ANISOCYTOSIS 1+ (0-0); EOSINOPHILS % (M) 2 % (0-7); LYMPHOCYTES #M 0.1 10^3/ul (0.8-2.9); LYMPHOCYTES % (M) 1 % (15-51); PLATELET ESTIMATE DECREASED; SEGMENTED NEUTROPHILS (M) % 97 % (39-77); SMUDGE%M 1 % (0-0)
[2017-08-27] MEDS: MAGNESIUM SULFATE 1 GM/D5W 100 ML IVPB (10:22)
[2017-08-27] MEDS: VANCOMYCIN 1.25 GM in SOD CHLORIDE 0.9% 250 ML IVPB (11:36)
[2017-08-27] MEDS: PIPER-TAZO 3.375 GM IV (PMX) 100 ML IVPB ×2 (14:16→21:35)
[2017-08-27 22:46] LABS: VANCOMYCIN,TROUGH 12.8 ug/ml (10.0-20.0)
[2017-08-28] MEDS: VANCOMYCIN 1.25 GM in SOD CHLORIDE 0.9% 250 ML IVPB (00:11)
[2017-08-28] MEDS: FENTAnyl (DRIP) 1000 mcg/100mL 100 ML IV (00:47)
[2017-08-28] MEDS: Insulin NOVOLOG SS MILD Algorithm (NPO/TPN/ENTERAL FEEDS) SC ×6 (01:00→21:00)
[2017-08-28] MEDS: ALBUTEROL HFA 8 GM INHALER INH ×6 (01:25→20:41)
[2017-08-28] MEDS: IPRATROPIUM (HFA) 12.9 GM INHALER INH ×6 (01:25→20:41)
[2017-08-28] MEDS: PROPOFOL 100 ML IV ×2 (03:30→15:30)
[2017-08-28] MEDS: VASOPRESSIN 60 UNIT in DEXTROSE 5% 57 ML IV (04:00)
[2017-08-28] MEDS: FLUCONAZOLE 400 MG/NS (PMX) 200 ML IVPB (05:24)
[2017-08-28 06:16] LABS: ADD MAN DIFF? NO
[2017-08-28] MEDS: PANTOPRAZOLE 40 MG INJ IV ×2 (06:16→17:24)
[2017-08-28] MEDS: metroNIDAZOLE 500 MG/NS (PMX) 100 ML IVPB ×3 (06:16→22:49)
[2017-08-28] MEDS: PIPER-TAZO 3.375 GM IV (PMX) 100 ML IVPB ×3 (06:16→21:30)
[2017-08-28 06:38] LABS: ABNORMAL IP MESSAGE 1; BASOPHILS % 0.1 % (0.0-2.0); EOSINOPHILS # 0.1 10^3/ul (0.0-0.5); EOSINOPHILS % 0.7 % (0.0-7.0); HEMOGLOBIN 8.3 g/dl (14.0-18.0); LYMPHOCYTES # 0.9 10^3/ul (0.8-2.9); LYMPHOCYTES % 6.2 % (15.0-51.0); MEAN CORPUSCULAR HEMOGLOBIN 31.1 pg (29.0-33.0); MEAN CORPUSCULAR HGB CONC 31.9 g/dl (32.0-37.0); MEAN CORPUSCULAR VOLUME 97.4 fl (82.0-101.0); MEAN PLATELET VOLUME 10.5 fl (7.4-10.4); MONOCYTE # 0.9 10^3/ul (0.3-0.9); MONOCYTES % 6.3 % (0.0-11.0); NEUTROPHIL # 11.7 10^3/ul (1.6-7.5); NEUTROPHILS % 83.6 % (39.0-77.0); PLATELET COUNT 93 10^3/UL (140-415); POSITIVE DIFF @See below; RED BLOOD COUNT 2.67 10^6/ul (4.70-6.10); RED CELL DISTRIBUTION WIDTH 15.4 % (11.5-14.5)
[2017-08-28 06:46] LABS: ALANINE AMINOTRANSFERASE 27 IU/L (13-69); ALBUMIN/GLOBULIN RATIO 0.71; ALKALINE PHOSPHATASE 72 IU/L (42-121); ANION GAP 7 (8-16); ASPARTATE AMINO TRANSFERASE 15 IU/L (15-46); BLOOD UREA NITROGEN 15 mg/dl (7-20); CALCIUM 7.9 mg/dl (8.4-10.2); CARBON DIOXIDE 27 mmol/L (21-31); CHLORIDE 110 mmol/L (97-110); CREATININE 0.62 mg/dl (0.61-1.24); GLUCOSE 140 mg/dl (70-220); MAGNESIUM 1.7 mg/dl (1.7-2.5); PHOSPHORUS 1.5 mg/dl (2.5-4.9); POTASSIUM 4.4 mmol/L (3.5-5.1); SODIUM 140 mmol/L (135-144); TOTAL PROTEIN 4.8 g/dl (6.1-8.1)
[2017-08-28] MEDS ORDERED: THIAMINE 200 MG INJ IV (10:00)
[2017-08-28] MEDS: MAGNESIUM SULFATE 2 GM/50 ML 50 ML IVPB (10:33)
[2017-08-28] MEDS: THIAMINE 100 MG in SOD CHLORIDE 0.9% 100 ML IV (11:43)
[2017-08-28] MEDS: TPN 1,000 ML IV (12:22)
[2017-08-29] MEDS: Insulin NOVOLOG SS MILD Algorithm (NPO/TPN/ENTERAL FEEDS) SC ×6 (01:00→20:54)
[2017-08-29] MEDS: ALBUTEROL HFA 8 GM INHALER INH ×6 (01:56→21:30)
[2017-08-29] MEDS: IPRATROPIUM (HFA) 12.9 GM INHALER INH ×6 (01:56→21:30)
[2017-08-29] MEDS: TPN 1,000 ML IV ×2 (03:00→18:26)
[2017-08-29] MEDS: PROPOFOL 100 ML IV ×2 (03:02→17:39)
[2017-08-29] MEDS: FLUCONAZOLE 400 MG/NS (PMX) 200 ML IVPB (05:23)
[2017-08-29] MEDS: PIPER-TAZO 3.375 GM IV (PMX) 100 ML IVPB ×3 (06:03→23:08)
[2017-08-29] MEDS: PANTOPRAZOLE 40 MG INJ IV ×2 (06:03→18:11)
[2017-08-29] MEDS: metroNIDAZOLE 500 MG/NS (PMX) 100 ML IVPB ×3 (06:03→23:08)
[2017-08-29 06:09] LABS: ADD MAN DIFF? NO
[2017-08-29 06:21] LABS: ABNORMAL IP MESSAGE 1; BASOPHILS % 0.2 % (0.0-2.0); EOSINOPHILS # 0.1 10^3/ul (0.0-0.5); EOSINOPHILS % 0.8 % (0.0-7.0); HEMATOCRIT 25.5 % (42.0-52.0); HEMOGLOBIN 8.2 g/dl (14.0-18.0); LYMPHOCYTES # 0.7 10^3/ul (0.8-2.9); LYMPHOCYTES % 5.4 % (15.0-51.0); MEAN CORPUSCULAR HEMOGLOBIN 31.2 pg (29.0-33.0); MEAN CORPUSCULAR HGB CONC 32.2 g/dl (32.0-37.0); MEAN PLATELET VOLUME 10.9 fl (7.4-10.4); MONOCYTES % 7.8 % (0.0-11.0); NEUTROPHILS % 79.9 % (39.0-77.0); PLATELET COUNT 87 10^3/UL (140-415); POSITIVE DIFF @See below; RED BLOOD COUNT 2.63 10^6/ul (4.70-6.10); RED CELL DISTRIBUTION WIDTH 15.2 % (11.5-14.5)
[2017-08-29 06:21] LABS: WHITE BLOOD COUNT 12.5 10^3/ul (4.8-10.8)
[2017-08-29 06:46] LABS: MAGNESIUM 1.5 mg/dl (1.7-2.5)
[2017-08-29 06:47] LABS: BLOOD UREA NITROGEN 15 mg/dl (7-20); CALCIUM 7.8 mg/dl (8.4-10.2); CARBON DIOXIDE 25 mmol/L (21-31); CHLORIDE 111 mmol/L (97-110); CREATININE 0.51 mg/dl (0.61-1.24); GLUCOSE 159 mg/dl (70-220); SODIUM 140 mmol/L (135-144)
[2017-08-29 07:41] LABS: ANION GAP 8 (8-16)
[2017-08-29 07:42] LABS: POTASSIUM 4.3 mmol/L (3.5-5.1)
[2017-08-29] MEDS: THIAMINE 100 MG in SOD CHLORIDE 0.9% 100 ML IV (09:15)
[2017-08-29] MEDS: MAGNESIUM SULFATE 3 GM in DEXTROSE 5% 100 ML IVPB (10:52)
[2017-08-29] MEDS: FUROSEMIDE 40 MG INJ IV (11:55)
[2017-08-29] MEDS: METHADONE (1 MG/ML 5 ML PO UD SYG) PO (11:56)
[2017-08-29 19:32] LABS: ADD UMIC YES; UR ASCORBIC ACID NEGATIVE (NEGATIVE); UR BILIRUBIN (Dip) NEGATIVE (NEGATIVE); UR BLOOD (Dip) 1+ mg/dL (NEGATIVE); UR CLARITY CLEAR (CLEAR); UR COLOR YELLOW (YELLOW); UR GLUCOSE (Dip) 1+ mg/dL (NEGATIVE); UR KETONES (Dip) NEGATIVE (NEGATIVE); UR LEUKOCYTE ESTERASE (Dip) TRACE Leu/ul (NEGATIVE); UR NITRITE (Dip) NEGATIVE (NEGATIVE); UR RBC 1 /HPF (0-5); UR SPECIFIC GRAVITY (Dip) 1.019 (1.003-1.030); UR TOTAL PROTEIN (Dip) 1+ mg/dl (NEGATIVE); UR UROBILINOGEN (Dip) NEGATIVE (NEGATIVE); UR WBC 1 /HPF (0-5)
[2017-08-30] MEDS: IPRATROPIUM (HFA) 12.9 GM INHALER INH ×6 (01:36→19:53)
[2017-08-30] MEDS: ALBUTEROL HFA 8 GM INHALER INH ×6 (01:36→19:53)
[2017-08-30] MEDS: Insulin NOVOLOG SS MILD Algorithm (NPO/TPN/ENTERAL FEEDS) SC ×6 (05:00→20:39)
[2017-08-30] MEDS: PIPER-TAZO 3.375 GM IV (PMX) 100 ML IVPB ×3 (05:10→21:18)
[2017-08-30] MEDS: PANTOPRAZOLE 40 MG INJ IV ×2 (05:10→17:57)
[2017-08-30] MEDS: metroNIDAZOLE 500 MG/NS (PMX) 100 ML IVPB ×3 (05:10→21:18)
[2017-08-30] MEDS: PROPOFOL 100 ML IV ×3 (05:11→21:19)
[2017-08-30] MEDS: TPN 1,000 ML IV (05:12)
[2017-08-30 05:51] LABS: ADD MAN DIFF? NO
[2017-08-30 05:54] LABS: WHITE BLOOD COUNT 14.4 10^3/ul (4.8-10.8)
[2017-08-30 05:54] LABS: BASOPHILS % 0.1 % (0.0-2.0); EOSINOPHILS # 0.1 10^3/ul (0.0-0.5); EOSINOPHILS % 0.6 % (0.0-7.0); HEMATOCRIT 25.9 % (42.0-52.0); HEMOGLOBIN 8.4 g/dl (14.0-18.0); LYMPHOCYTES # 0.8 10^3/ul (0.8-2.9); LYMPHOCYTES % 5.7 % (15.0-51.0); MEAN CORPUSCULAR HGB CONC 32.4 g/dl (32.0-37.0); MEAN CORPUSCULAR VOLUME 95.6 fl (82.0-101.0); MEAN PLATELET VOLUME 11.1 fl (7.4-10.4); MONOCYTE # 0.9 10^3/ul (0.3-0.9); MONOCYTES % 6.3 % (0.0-11.0); NEUTROPHIL # 11.9 10^3/ul (1.6-7.5); PLATELET COUNT 116 10^3/UL (140-415); RED BLOOD COUNT 2.71 10^6/ul (4.70-6.10); RED CELL DISTRIBUTION WIDTH 15.2 % (11.5-14.5)
[2017-08-30 06:26] LABS: ALANINE AMINOTRANSFERASE 23 IU/L (13-69); ALBUMIN 2.1 g/dl (3.3-4.9); ALKALINE PHOSPHATASE 68 IU/L (42-121); ANION GAP 10 (8-16); ASPARTATE AMINO TRANSFERASE 20 IU/L (15-46); BLOOD UREA NITROGEN 17 mg/dl (7-20); CALCIUM 7.6 mg/dl (8.4-10.2); CARBON DIOXIDE 26 mmol/L (21-31); CHLORIDE 109 mmol/L (97-110); CREATININE 0.59 mg/dl (0.61-1.24); GLUCOSE 211 mg/dl (70-220); POTASSIUM 4.1 mmol/L (3.5-5.1); SODIUM 141 mmol/L (135-144); TOTAL PROTEIN 5.1 g/dl (6.1-8.1)
[2017-08-30 06:30] LABS: MAGNESIUM 1.7 mg/dl (1.7-2.5)
[2017-08-30 06:30] LABS: PHOSPHORUS 2.4 mg/dl (2.5-4.9)
[2017-08-30 08:16] LABS: AADO2 Arterial 114.4 mmHg (7.0-24.0); Allen Test ACCEPTAB; Arterial Base Excess 1.9 mmol/L (-3.0-3); Arterial Blood Gas Oxygen Sat 97.1 mmHG (95.0-98.0); Arterial COHb 0.3 % (0.0-3.0); Arterial Fraction of Oxyhgb 96.7 % (93.0-99.0); Arterial HCO3 25.1 mmol/L (22.0-26.0); Arterial MetHb 0.1 % (0.0-1.5); Arterial Total Hemglobin 9.3 g/dl (12.0-18.0); Arterial pCO2 33.4 mmhg (35-45); MODE VENT - AC; Site Right Radial
[2017-08-30] MEDS: THIAMINE 100 MG in SOD CHLORIDE 0.9% 100 ML IV (09:00)
[2017-08-30] MEDS: METHADONE (1 MG/ML 5 ML PO UD SYG) PO (09:28)
[2017-08-30] MEDS: MAGNESIUM SULFATE 2 GM/50 ML 50 ML IVPB (09:28)
[2017-08-30] MEDS ORDERED: MAGNESIUM SULFATE 2 GM/50 ML 50 ML IVPB (10:00)
[2017-08-30] MEDS: ACETAMINOPHEN 650MG/20.3ML CUP NGT (14:02)
[2017-08-30 14:06] LABS: AADO2 Arterial 123.3 mmHg (7.0-24.0); Allen Test ACCEPTAB; Arterial Base Excess 2.4 mmol/L (-3.0-3); Arterial Blood Gas Oxygen Sat 95.9 mmHG (95.0-98.0); Arterial COHb 0.3 % (0.0-3.0); Arterial Fraction of Oxyhgb 95.3 % (93.0-99.0); Arterial HCO3 26.4 mmol/L (22.0-26.0); Arterial MetHb 0.3 % (0.0-1.5); Arterial Total Hemglobin 9.4 g/dl (12.0-18.0); Arterial pCO2 38.5 mmhg (35-45); Blood Gas PS 10; MODE VENT - CPAP; Site Right Radial
[2017-08-30] MEDS: FUROSEMIDE 20 MG INJ IV (17:56)
[2017-08-31] MEDS: Insulin NOVOLOG SS MILD Algorithm (NPO/TPN/ENTERAL FEEDS) SC ×2 (01:00→05:00)
[2017-08-31] MEDS: ALBUTEROL HFA 8 GM INHALER INH ×6 (01:03→20:31)
[2017-08-31] MEDS: IPRATROPIUM (HFA) 12.9 GM INHALER INH ×6 (01:03→20:31)
[2017-08-31] MEDS: PROPOFOL 100 ML IV ×5 (03:11→23:01)
[2017-08-31 05:21] LABS: ADD MAN DIFF? NO
[2017-08-31 05:29] LABS: BASOPHILS % 0.2 % (0.0-2.0); EOSINOPHILS # 0.2 10^3/ul (0.0-0.5); EOSINOPHILS % 1.1 % (0.0-7.0); HEMATOCRIT 25.7 % (42.0-52.0); HEMOGLOBIN 8.2 g/dl (14.0-18.0); LYMPHOCYTES # 0.9 10^3/ul (0.8-2.9); LYMPHOCYTES % 5.5 % (15.0-51.0); MEAN CORPUSCULAR HEMOGLOBIN 30.1 pg (29.0-33.0); MEAN CORPUSCULAR HGB CONC 31.9 g/dl (32.0-37.0); MEAN CORPUSCULAR VOLUME 94.5 fl (82.0-101.0); MEAN PLATELET VOLUME 11.4 fl (7.4-10.4); MONOCYTE # 0.7 10^3/ul (0.3-0.9); MONOCYTES % 4.3 % (0.0-11.0); NEUTROPHIL # 13.5 10^3/ul (1.6-7.5); NEUTROPHILS % 85.6 % (39.0-77.0); PLATELET COUNT 157 10^3/UL (140-415); RED BLOOD COUNT 2.72 10^6/ul (4.70-6.10)
[2017-08-31 05:29] LABS: WHITE BLOOD COUNT 15.8 10^3/ul (4.8-10.8)
[2017-08-31] MEDS: metroNIDAZOLE 500 MG/NS (PMX) 100 ML IVPB ×3 (05:41→21:04)
[2017-08-31] MEDS: PIPER-TAZO 3.375 GM IV (PMX) 100 ML IVPB (05:42)
[2017-08-31] MEDS: PANTOPRAZOLE 40 MG INJ IV ×2 (05:42→18:21)
[2017-08-31] MEDS: FUROSEMIDE 20 MG INJ IV ×2 (05:42→18:21)
[2017-08-31 05:54] LABS: ALANINE AMINOTRANSFERASE 31 IU/L (13-69); ALBUMIN 2.1 g/dl (3.3-4.9); ALBUMIN/GLOBULIN RATIO 0.77; ALKALINE PHOSPHATASE 79 IU/L (42-121); ANION GAP 9 (8-16); ASPARTATE AMINO TRANSFERASE 23 IU/L (15-46); BLOOD UREA NITROGEN 15 mg/dl (7-20); CALCIUM 7.4 mg/dl (8.4-10.2); CARBON DIOXIDE 30 mmol/L (21-31); CHLORIDE 108 mmol/L (97-110); CREATININE 0.57 mg/dl (0.61-1.24); GLUCOSE 116 mg/dl (70-220); POTASSIUM 3.7 mmol/L (3.5-5.1); SODIUM 143 mmol/L (135-144); TOTAL PROTEIN 4.8 g/dl (6.1-8.1)
[2017-08-31 06:07] LABS: MAGNESIUM 1.5 mg/dl (1.7-2.5)
[2017-08-31 06:07] LABS: PHOSPHORUS 2.3 mg/dl (2.5-4.9)
[2017-08-31] MEDS: ACETAMINOPHEN 650MG/20.3ML CUP NGT (08:43)
[2017-08-31] MEDS: THIAMINE 100 MG in SOD CHLORIDE 0.9% 100 ML IV (08:44)
[2017-08-31] MEDS: METHADONE (1 MG/ML 5 ML PO UD SYG) PO (08:49)
[2017-08-31] MEDS: morphine 2 MG INJ IV (09:24)
[2017-08-31] MEDS: LACTOBACILLUS RHAMNOSUS CAP PO ×2 (09:59→21:04)
[2017-08-31] MEDS: LEVOFLOXACIN 750MG/D5W (PMX) 150 ML IVPB (10:14)
[2017-08-31] MEDS: MAGNESIUM SULFATE 4 GM/100 ML 100 ML IVPB (11:32)
[2017-08-31] MEDS: INSULIN ASPART [NOVOLOG] 3 ML PEN SC ×3 (11:50→23:03)
[2017-08-31] MEDS: POTASSIUM PHOSPHATE 30 MM in DEXTROSE 5% 250 ML IVPB (12:25)
[2017-09-01] MEDS: ALBUTEROL HFA 8 GM INHALER INH ×5 (01:01→17:00)
[2017-09-01] MEDS: IPRATROPIUM (HFA) 12.9 GM INHALER INH ×5 (01:01→17:00)
[2017-09-01] MEDS: morphine 2 MG INJ IV ×3 (03:28→21:50)
[2017-09-01] MEDS: PROPOFOL 100 ML IV ×2 (03:59→07:24)
[2017-09-01] MEDS: PANTOPRAZOLE 40 MG INJ IV ×2 (05:19→17:52)
[2017-09-01] MEDS: metroNIDAZOLE 500 MG/NS (PMX) 100 ML IVPB ×3 (05:19→21:50)
[2017-09-01] MEDS: INSULIN ASPART [NOVOLOG] 3 ML PEN SC ×3 (05:19→17:54)
[2017-09-01] MEDS: FUROSEMIDE 20 MG INJ IV ×3 (05:20→17:53)
[2017-09-01 05:48] LABS: ADD MAN DIFF? NO
[2017-09-01 06:01] LABS: WHITE BLOOD COUNT 18.8 10^3/ul (4.8-10.8)
[2017-09-01 06:01] LABS: BASOPHILS % 0.1 % (0.0-2.0); EOSINOPHILS # 0.2 10^3/ul (0.0-0.5); EOSINOPHILS % 0.9 % (0.0-7.0); HEMATOCRIT 24.8 % (42.0-52.0); HEMOGLOBIN 8.1 g/dl (14.0-18.0); LYMPHOCYTES # 0.6 10^3/ul (0.8-2.9); LYMPHOCYTES % 3.4 % (15.0-51.0); MEAN CORPUSCULAR HGB CONC 32.7 g/dl (32.0-37.0); MEAN PLATELET VOLUME 10.9 fl (7.4-10.4); MONOCYTE # 0.7 10^3/ul (0.3-0.9); MONOCYTES % 3.5 % (0.0-11.0); NEUTROPHIL # 16.9 10^3/ul (1.6-7.5); NEUTROPHILS % 89.8 % (39.0-77.0); PLATELET COUNT 217 10^3/UL (140-415); RED BLOOD COUNT 2.61 10^6/ul (4.70-6.10); RED CELL DISTRIBUTION WIDTH 14.6 % (11.5-14.5)
[2017-09-01 06:12] LABS: MAGNESIUM 1.8 mg/dl (1.7-2.5)
[2017-09-01 06:12] LABS: PHOSPHORUS 2.4 mg/dl (2.5-4.9)
[2017-09-01 06:23] LABS: ANION GAP 7 (8-16); BLOOD UREA NITROGEN 11 mg/dl (7-20); CALCIUM 7.6 mg/dl (8.4-10.2); CARBON DIOXIDE 31 mmol/L (21-31); CHLORIDE 105 mmol/L (97-110); CREATININE 0.49 mg/dl (0.61-1.24); GLUCOSE 142 mg/dl (70-220); POTASSIUM 3.9 mmol/L (3.5-5.1); SODIUM 139 mmol/L (135-144)
[2017-09-01 08:00] LABS: AADO2 Arterial 107.7 mmHg (7.0-24.0); Allen Test ACCEPTAB; Arterial Base Excess 7.1 mmol/L (-3.0-3); Arterial COHb 0.2 % (0.0-3.0); Arterial Fraction of Oxyhgb 96.7 % (93.0-99.0); Arterial HCO3 31.2 mmol/L (22.0-26.0); Arterial MetHb 0.1 % (0.0-1.5); Arterial Total Hemglobin 8.2 g/dl (12.0-18.0); Arterial pCO2 42.9 mmhg (35-45); MODE VENT - AC; Site Right Radial
[2017-09-01] MEDS: THIAMINE 100 MG in SOD CHLORIDE 0.9% 100 ML IV (09:03)
[2017-09-01] MEDS: LACTOBACILLUS RHAMNOSUS CAP PO ×2 (09:03→21:50)
[2017-09-01] MEDS: METHADONE (1 MG/ML 5 ML PO UD SYG) PO (09:04)
[2017-09-01] MEDS: LEVOFLOXACIN 750MG/D5W (PMX) 150 ML IVPB (09:50)
[2017-09-01 10:03] LABS: AADO2 Arterial 137.1 mmHg (7.0-24.0); Allen Test ACCEPTAB; Arterial Base Excess 4.8 mmol/L (-3.0-3); Arterial Blood Gas Oxygen Sat 90.6 mmHG (95.0-98.0); Arterial COHb 0.3 % (0.0-3.0); Arterial Fraction of Oxyhgb 90.2 % (93.0-99.0); Arterial HCO3 29.5 mmol/L (22.0-26.0); Arterial MetHb 0.1 % (0.0-1.5); Arterial Total Hemglobin 9.5 g/dl (12.0-18.0); Arterial pCO2 44.5 mmhg (35-45); Blood Gas PS 10; MODE VENT - CPAP; Site Right Radial
[2017-09-01] MEDS: ACETAMINOPHEN 650MG/20.3ML CUP NGT (14:13)
[2017-09-02] MEDS: morphine 2 MG INJ IV ×3 (00:32→21:55)
[2017-09-02 04:15] LABS: ADD MAN DIFF? NO
[2017-09-02 04:17] LABS: ABNORMAL IP MESSAGE 1; BASOPHILS % 0.2 % (0.0-2.0); EOSINOPHILS % 0.1 % (0.0-7.0); HEMATOCRIT 27.3 % (42.0-52.0); HEMOGLOBIN 9.1 g/dl (14.0-18.0); LYMPHOCYTES # 0.6 10^3/ul (0.8-2.9); LYMPHOCYTES % 2.8 % (15.0-51.0); MEAN CORPUSCULAR HEMOGLOBIN 31.2 pg (29.0-33.0); MEAN CORPUSCULAR HGB CONC 33.3 g/dl (32.0-37.0); MEAN CORPUSCULAR VOLUME 93.5 fl (82.0-101.0); MEAN PLATELET VOLUME 10.1 fl (7.4-10.4); MONOCYTE # 0.7 10^3/ul (0.3-0.9); MONOCYTES % 3.1 % (0.0-11.0); NEUTROPHIL # 19.4 10^3/ul (1.6-7.5); NEUTROPHILS % 92.2 % (39.0-77.0); PLATELET COUNT 354 10^3/UL (140-415); POSITIVE DIFF @See below; RED BLOOD COUNT 2.92 10^6/ul (4.70-6.10); RED CELL DISTRIBUTION WIDTH 14.5 % (11.5-14.5)
[2017-09-02 04:38] LABS: ANION GAP 10 (8-16); BLOOD UREA NITROGEN 12 mg/dl (7-20); CALCIUM 7.8 mg/dl (8.4-10.2); CARBON DIOXIDE 33 mmol/L (21-31); CHLORIDE 102 mmol/L (97-110); CREATININE 0.59 mg/dl (0.61-1.24); GLUCOSE 197 mg/dl (70-220); MAGNESIUM 1.5 mg/dl (1.7-2.5); PHOSPHORUS 2.7 mg/dl (2.5-4.9); POTASSIUM 3.4 mmol/L (3.5-5.1); SODIUM 142 mmol/L (135-144)
[2017-09-02] MEDS: metroNIDAZOLE 500 MG/NS (PMX) 100 ML IVPB ×3 (05:56→21:14)
[2017-09-02] MEDS: PANTOPRAZOLE 40 MG INJ IV ×2 (05:56→18:09)
[2017-09-02] MEDS: FUROSEMIDE 20 MG INJ IV ×2 (05:57→18:10)
[2017-09-02] MEDS: INSULIN ASPART [NOVOLOG] 3 ML PEN SC ×5 (05:58→21:00)
[2017-09-02] MEDS: LACTOBACILLUS RHAMNOSUS CAP PO ×2 (08:16→21:54)
[2017-09-02] MEDS: THIAMINE 100 MG in SOD CHLORIDE 0.9% 100 ML IV (08:16)
[2017-09-02] MEDS: METHADONE (1 MG/ML 5 ML PO UD SYG) PO (08:17)
[2017-09-02] MEDS: LEVOFLOXACIN 750MG/D5W (PMX) 150 ML IVPB (09:47)
[2017-09-02] MEDS: FOLIC ACID 1 MG TAB PO (09:52)
[2017-09-02] MEDS: POTASSIUM CHLORIDE 50 ML IVPB ×2 (09:52→12:23)
[2017-09-02 10:13] LABS: ADD UMIC YES; UR ASCORBIC ACID NEGATIVE (NEGATIVE); UR BILIRUBIN (Dip) NEGATIVE (NEGATIVE); UR BLOOD (Dip) NEGATIVE (NEGATIVE); UR CLARITY CLEAR (CLEAR); UR COLOR YELLOW (YELLOW); UR GLUCOSE (Dip) 2+ mg/dL (NEGATIVE); UR KETONES (Dip) NEGATIVE (NEGATIVE); UR LEUKOCYTE ESTERASE (Dip) TRACE Leu/ul (NEGATIVE); UR NITRITE (Dip) NEGATIVE (NEGATIVE); UR RBC 2 /HPF (0-5); UR SPECIFIC GRAVITY (Dip) 1.016 (1.003-1.030); UR TOTAL PROTEIN (Dip) 1+ mg/dl (NEGATIVE); UR UROBILINOGEN (Dip) NEGATIVE (NEGATIVE); UR WBC 2 /HPF (0-5)
[2017-09-02] MEDS: MAGNESIUM SULFATE 4 GM/100 ML 100 ML IVPB (11:26)
[2017-09-03] MEDS: PANTOPRAZOLE 40 MG INJ IV ×2 (05:52→18:24)
[2017-09-03] MEDS: metroNIDAZOLE 500 MG/NS (PMX) 100 ML IVPB (05:53)
[2017-09-03] MEDS: FUROSEMIDE 20 MG INJ IV ×2 (05:54→18:24)
[2017-09-03 06:21] LABS: ADD MAN DIFF? NO
[2017-09-03 06:26] LABS: WHITE BLOOD COUNT 15.1 10^3/ul (4.8-10.8)
[2017-09-03 06:26] LABS: BASOPHILS % 0.2 % (0.0-2.0); EOSINOPHILS # 0.1 10^3/ul (0.0-0.5); EOSINOPHILS % 0.7 % (0.0-7.0); HEMATOCRIT 25.5 % (42.0-52.0); HEMOGLOBIN 8.3 g/dl (14.0-18.0); LYMPHOCYTES # 0.8 10^3/ul (0.8-2.9); LYMPHOCYTES % 5.2 % (15.0-51.0); MEAN CORPUSCULAR HEMOGLOBIN 30.3 pg (29.0-33.0); MEAN CORPUSCULAR HGB CONC 32.5 g/dl (32.0-37.0); MEAN CORPUSCULAR VOLUME 93.1 fl (82.0-101.0); MEAN PLATELET VOLUME 9.6 fl (7.4-10.4); MONOCYTE # 0.9 10^3/ul (0.3-0.9); MONOCYTES % 5.9 % (0.0-11.0); NEUTROPHIL # 13.1 10^3/ul (1.6-7.5); NEUTROPHILS % 86.8 % (39.0-77.0); PLATELET COUNT 404 10^3/UL (140-415); RED BLOOD COUNT 2.74 10^6/ul (4.70-6.10); RED CELL DISTRIBUTION WIDTH 14.6 % (11.5-14.5)
[2017-09-03 06:59] LABS: MAGNESIUM 1.9 mg/dl (1.7-2.5)
[2017-09-03 06:59] LABS: PHOSPHORUS 2.7 mg/dl (2.5-4.9)
[2017-09-03 07:00] LABS: ALANINE AMINOTRANSFERASE 27 IU/L (13-69); ALBUMIN 2.6 g/dl (3.3-4.9); ALBUMIN/GLOBULIN RATIO 0.76; ALKALINE PHOSPHATASE 66 IU/L (42-121); ANION GAP 11 (8-16); ASPARTATE AMINO TRANSFERASE 18 IU/L (15-46); BILIRUBIN,INDIRECT 0.1 mg/dl (0-1.1); BILIRUBIN,TOTAL 0.1 mg/dl (0.2-1.3); BLOOD UREA NITROGEN 11 mg/dl (7-20); CALCIUM 7.8 mg/dl (8.4-10.2); CARBON DIOXIDE 30 mmol/L (21-31); CHLORIDE 103 mmol/L (97-110); CREATININE 0.56 mg/dl (0.61-1.24); GLUCOSE 115 mg/dl (70-220); POTASSIUM 3.3 mmol/L (3.5-5.1); SODIUM 141 mmol/L (135-144)
[2017-09-03] MEDS: INSULIN ASPART [NOVOLOG] 3 ML PEN SC ×4 (07:50→21:19)
[2017-09-03] MEDS: THIAMINE 100 MG TAB PO (08:47)
[2017-09-03] MEDS: LACTOBACILLUS RHAMNOSUS CAP PO ×2 (08:47→21:11)
[2017-09-03] MEDS: FOLIC ACID 1 MG TAB PO (08:48)
[2017-09-03] MEDS: MULTIVITAMINS THERAPEUTIC TAB PO (08:48)
[2017-09-03] MEDS: METHADONE (1 MG/ML 5 ML PO UD SYG) PO (08:49)
[2017-09-03] MEDS: LEVOFLOXACIN 750MG/D5W (PMX) 150 ML IVPB (10:25)
[2017-09-03] MEDS: MAGNESIUM SULFATE 2 GM/50 ML 50 ML IVPB (10:25)
[2017-09-03] MEDS: POTASSIUM CHLORIDE (SR) 20 MEQ TAB PO (10:26)
[2017-09-03] MEDS: TAMSULOSIN (SR) 0.4 MG CAP PO ×2 (11:55→21:11)
[2017-09-03] MEDS: metroNIDAZOLE 500 MG TAB PO ×2 (13:39→21:41)
[2017-09-04] MEDS: PANTOPRAZOLE 40 MG INJ IV (05:52)
[2017-09-04] MEDS: LEVOFLOXACIN 750 MG TABLET PO (05:52)
[2017-09-04] MEDS: FUROSEMIDE 20 MG INJ IV (05:52)
[2017-09-04] MEDS: metroNIDAZOLE 500 MG TAB PO ×3 (05:52→20:55)
[2017-09-04 06:29] LABS: ADD MAN DIFF? NO
[2017-09-04 06:35] LABS: WHITE BLOOD COUNT 15.9 10^3/ul (4.8-10.8)
[2017-09-04 06:35] LABS: BASOPHILS % 0.2 % (0.0-2.0); EOSINOPHILS # 0.2 10^3/ul (0.0-0.5); EOSINOPHILS % 0.9 % (0.0-7.0); HEMATOCRIT 25.3 % (42.0-52.0); HEMOGLOBIN 8.4 g/dl (14.0-18.0); LYMPHOCYTES # 1.2 10^3/ul (0.8-2.9); LYMPHOCYTES % 7.4 % (15.0-51.0); MEAN CORPUSCULAR HEMOGLOBIN 30.4 pg (29.0-33.0); MEAN CORPUSCULAR HGB CONC 33.2 g/dl (32.0-37.0); MEAN CORPUSCULAR VOLUME 91.7 fl (82.0-101.0); MEAN PLATELET VOLUME 9.3 fl (7.4-10.4); MONOCYTE # 1.1 10^3/ul (0.3-0.9); MONOCYTES % 7.1 % (0.0-11.0); NEUTROPHIL # 13.3 10^3/ul (1.6-7.5); NEUTROPHILS % 83.7 % (39.0-77.0); PLATELET COUNT 467 10^3/UL (140-415); RED BLOOD COUNT 2.76 10^6/ul (4.70-6.10); RED CELL DISTRIBUTION WIDTH 14.8 % (11.5-14.5)
[2017-09-04 07:01] LABS: ALANINE AMINOTRANSFERASE 29 IU/L (13-69); ALBUMIN 2.8 g/dl (3.3-4.9); ALBUMIN/GLOBULIN RATIO 0.77; ALKALINE PHOSPHATASE 71 IU/L (42-121); ANION GAP 14 (8-16); ASPARTATE AMINO TRANSFERASE 21 IU/L (15-46); BILIRUBIN,INDIRECT 0.2 mg/dl (0-1.1); BILIRUBIN,TOTAL 0.2 mg/dl (0.2-1.3); BLOOD UREA NITROGEN 13 mg/dl (7-20); CARBON DIOXIDE 28 mmol/L (21-31); CHLORIDE 103 mmol/L (97-110); CREATININE 0.61 mg/dl (0.61-1.24); GLUCOSE 142 mg/dl (70-220); POTASSIUM 3.6 mmol/L (3.5-5.1); SODIUM 141 mmol/L (135-144); TOTAL PROTEIN 6.4 g/dl (6.1-8.1)
[2017-09-04 07:07] LABS: MAGNESIUM 1.8 mg/dl (1.7-2.5)
[2017-09-04 07:07] LABS: PHOSPHORUS 2.8 mg/dl (2.5-4.9)
[2017-09-04] MEDS: INSULIN ASPART [NOVOLOG] 3 ML PEN SC (07:55)
[2017-09-04] MEDS: METHADONE (1 MG/ML 5 ML PO UD SYG) PO (10:04)
[2017-09-04] MEDS: THIAMINE 100 MG TAB PO (10:05)
[2017-09-04] MEDS: LACTOBACILLUS RHAMNOSUS CAP PO ×2 (10:05→20:55)
[2017-09-04] MEDS: MULTIVITAMINS THERAPEUTIC TAB PO (10:05)
[2017-09-04] MEDS: FOLIC ACID 1 MG TAB PO (10:05)
[2017-09-04] MEDS: TAMSULOSIN (SR) 0.4 MG CAP PO ×2 (10:05→20:55)
[2017-09-04] MEDS: POTASSIUM CHLORIDE (SR) 20 MEQ TAB PO (12:02)
[2017-09-04] MEDS: MAGNESIUM SULFATE 2 GM/50 ML 50 ML IVPB (12:02)
[2017-09-04] MEDS: morphine 2 MG INJ IV ×2 (12:15→21:02)
[2017-09-04] MEDS: FUROSEMIDE 20 MG TAB PO (17:58)
[2017-09-04] MEDS: PANTOPRAZOLE (EC) 40 MG TAB PO (17:58)
[2017-09-05] MEDS: metroNIDAZOLE 500 MG TAB PO (05:28)
[2017-09-05] MEDS: LEVOFLOXACIN 750 MG TABLET PO (05:28)
[2017-09-05] MEDS: PANTOPRAZOLE (EC) 40 MG TAB PO ×2 (05:28→17:19)
[2017-09-05] MEDS: FUROSEMIDE 20 MG TAB PO ×2 (05:28→17:19)
[2017-09-05] MEDS: morphine 2 MG INJ IV ×4 (05:29→21:04)
[2017-09-05 08:43] LABS: ADD MAN DIFF? NO
[2017-09-05 08:58] LABS: BASOPHIL # 0.1 10^3/ul (0.0-0.1); BASOPHILS % 0.4 % (0.0-2.0); EOSINOPHILS # 0.2 10^3/ul (0.0-0.5); EOSINOPHILS % 1.3 % (0.0-7.0); HEMATOCRIT 22.3 % (42.0-52.0); HEMOGLOBIN 7.5 g/dl (14.0-18.0); LYMPHOCYTES # 0.8 10^3/ul (0.8-2.9); LYMPHOCYTES % 7.2 % (15.0-51.0); MEAN CORPUSCULAR HEMOGLOBIN 31.3 pg (29.0-33.0); MEAN CORPUSCULAR HGB CONC 33.6 g/dl (32.0-37.0); MEAN CORPUSCULAR VOLUME 92.9 fl (82.0-101.0); MEAN PLATELET VOLUME 9.3 fl (7.4-10.4); MONOCYTES % 8.4 % (0.0-11.0); NEUTROPHIL # 9.5 10^3/ul (1.6-7.5); NEUTROPHILS % 81.8 % (39.0-77.0); PLATELET COUNT 383 10^3/UL (140-415); RED CELL DISTRIBUTION WIDTH 14.8 % (11.5-14.5)
[2017-09-05 08:58] LABS: WHITE BLOOD COUNT 11.6 10^3/ul (4.8-10.8)
[2017-09-05 09:13] LABS: MAGNESIUM 1.7 mg/dl (1.7-2.5)
[2017-09-05 09:13] LABS: PHOSPHORUS 3.2 mg/dl (2.5-4.9)
[2017-09-05 09:16] LABS: ANION GAP 11 (8-16); BLOOD UREA NITROGEN 9 mg/dl (7-20); CARBON DIOXIDE 28 mmol/L (21-31); CHLORIDE 105 mmol/L (97-110); CREATININE 0.58 mg/dl (0.61-1.24); GLUCOSE 97 mg/dl (70-220); POTASSIUM 4.1 mmol/L (3.5-5.1); SODIUM 140 mmol/L (135-144)
[2017-09-05] MEDS: LACTOBACILLUS RHAMNOSUS CAP PO ×2 (10:05→21:03)
[2017-09-05] MEDS: THIAMINE 100 MG TAB PO (10:05)
[2017-09-05] MEDS: METHADONE (1 MG/ML 5 ML PO UD SYG) PO (10:05)
[2017-09-05] MEDS: TAMSULOSIN (SR) 0.4 MG CAP PO ×2 (10:05→21:03)
[2017-09-05] MEDS: MULTIVITAMINS THERAPEUTIC TAB PO (10:05)
[2017-09-05] MEDS: FOLIC ACID 1 MG TAB PO (10:05)
[2017-09-05 11:13] LABS: HEMATOCRIT 23.2 % (42.0-52.0); HEMOGLOBIN 7.8 g/dl (14.0-18.0)
[2017-09-05] MEDS: FERROUS SULFATE (EC) 325 MG TAB PO ×2 (11:42→21:03)
[2017-09-05] MEDS: SOD CHLORIDE 0.9% 250 ML IV* (12:16)
[2017-09-05 15:27] LABS: IMMEDIATE SPIN CROSSMATCH 1 1
[2017-09-06] MEDS: FUROSEMIDE 20 MG TAB PO ×2 (06:09→17:16)
[2017-09-06] MEDS: LEVOFLOXACIN 750 MG TABLET PO (06:09)
[2017-09-06] MEDS: PANTOPRAZOLE (EC) 40 MG TAB PO ×2 (06:09→17:16)
[2017-09-06] MEDS: morphine 2 MG INJ IV ×2 (06:09→13:49)
[2017-09-06 07:21] LABS: ADD MAN DIFF? NO
[2017-09-06 07:26] LABS: BASOPHIL # 0.1 10^3/ul (0.0-0.1); BASOPHILS % 0.5 % (0.0-2.0); EOSINOPHILS # 0.2 10^3/ul (0.0-0.5); EOSINOPHILS % 1.8 % (0.0-7.0); HEMATOCRIT 27.3 % (42.0-52.0); HEMOGLOBIN 8.9 g/dl (14.0-18.0); LYMPHOCYTES # 1.1 10^3/ul (0.8-2.9); LYMPHOCYTES % 9.5 % (15.0-51.0); MEAN CORPUSCULAR HEMOGLOBIN 29.9 pg (29.0-33.0); MEAN CORPUSCULAR HGB CONC 32.6 g/dl (32.0-37.0); MEAN CORPUSCULAR VOLUME 91.6 fl (82.0-101.0); MONOCYTES % 8.7 % (0.0-11.0); NEUTROPHILS % 78.5 % (39.0-77.0); PLATELET COUNT 441 10^3/UL (140-415); RED BLOOD COUNT 2.98 10^6/ul (4.70-6.10); RED CELL DISTRIBUTION WIDTH 16.4 % (11.5-14.5)
[2017-09-06 07:26] LABS: WHITE BLOOD COUNT 11.4 10^3/ul (4.8-10.8)
[2017-09-06] MEDS: FERROUS SULFATE (EC) 325 MG TAB PO ×2 (08:28→20:41)
[2017-09-06] MEDS: MULTIVITAMINS THERAPEUTIC TAB PO (08:28)
[2017-09-06] MEDS: TAMSULOSIN (SR) 0.4 MG CAP PO ×2 (08:28→20:40)
[2017-09-06] MEDS: LACTOBACILLUS RHAMNOSUS CAP PO ×2 (08:28→20:41)
[2017-09-06] MEDS: FOLIC ACID 1 MG TAB PO (08:28)
[2017-09-06] MEDS: THIAMINE 100 MG TAB PO (08:28)
[2017-09-06] MEDS: METHADONE (1 MG/ML 5 ML PO UD SYG) PO (08:29)
[2017-09-06] MEDS ORDERED: morphine LIQ (10 MG/5 ML) CUP PO (19:30)
[2017-09-06] MEDS: morphine LIQ (10 MG/5 ML) CUP PO (20:41)
[2017-09-07] MEDS: morphine LIQ (10 MG/5 ML) CUP PO ×2 (00:07→05:29)
[2017-09-07] MEDS: FUROSEMIDE 20 MG TAB PO (05:28)
[2017-09-07] MEDS: LEVOFLOXACIN 750 MG TABLET PO (05:29)
[2017-09-07] MEDS: PANTOPRAZOLE (EC) 40 MG TAB PO ×2 (05:29→17:27)
[2017-09-07] MEDS: TAMSULOSIN (SR) 0.4 MG CAP PO ×2 (08:04→20:40)
[2017-09-07] MEDS: LACTOBACILLUS RHAMNOSUS CAP PO ×2 (08:04→20:40)
[2017-09-07] MEDS: FOLIC ACID 1 MG TAB PO (08:04)
[2017-09-07] MEDS: THIAMINE 100 MG TAB PO (08:04)
[2017-09-07] MEDS: MULTIVITAMINS THERAPEUTIC TAB PO (08:04)
[2017-09-07] MEDS: FERROUS SULFATE (EC) 325 MG TAB PO ×2 (08:04→20:41)
[2017-09-07] MEDS: METHADONE (1 MG/ML 5 ML PO UD SYG) PO (08:05)
[2017-09-07] MEDS ORDERED: morphine LIQ (10 MG/5 ML) CUP PO (11:30)
[2017-09-07] MEDS: traMADol 50 MG TAB PO (20:40)
[2017-09-08] MEDS: traMADol 50 MG TAB PO (05:48)
[2017-09-08] MEDS: PANTOPRAZOLE (EC) 40 MG TAB PO (05:48)
[2017-09-08] MEDS: LACTOBACILLUS RHAMNOSUS CAP PO (08:50)
[2017-09-08] MEDS: MULTIVITAMINS THERAPEUTIC TAB PO (08:50)
[2017-09-08] MEDS: FOLIC ACID 1 MG TAB PO (08:53)
[2017-09-08] MEDS: TAMSULOSIN (SR) 0.4 MG CAP PO (08:53)
[2017-09-08] MEDS: FERROUS SULFATE (EC) 325 MG TAB PO (08:53)
[2017-09-08] MEDS: FUROSEMIDE 20 MG TAB PO (08:53)
[2017-09-08] MEDS: THIAMINE 100 MG TAB PO (08:53)
[2017-09-08] MEDS: METHADONE (1 MG/ML 5 ML PO UD SYG) PO (08:54)
== END 2017-09-08 11:25 | DRG 853 ==
LOC: REC 18:44 → TEL 09-02 14:41 → E/R 13:31 → ICU 08-24 03:11
PROC: 02HV33Z Insertion of Infusion Device into Superior Vena Cava, Percutaneous Approach (ICD-10-PCS; principal; 2017-08-23 00:55)
PROC: 0JH63XZ Insertion of Tunneled Vascular Access Device into Chest Subcutaneous Tissue and Fascia, Percutaneous Approach (ICD-10-PCS; 2017-08-23 00:55)
PROC: 05HM33Z Insertion of Infusion Device into Right Internal Jugular Vein, Percutaneous Approach (ICD-10-PCS; 2017-08-23 00:55)
PROC: 0DB80ZZ Excision of Small Intestine, Open Approach (ICD-10-PCS; 2017-08-23 23:58)
PROC: 0YU60KZ Supplement Left Inguinal Region with Nonautologous Tissue Substitute, Open Approach (ICD-10-PCS; 2017-08-23 23:58)
PROC: 5A1955Z Respiratory Ventilation, Greater than 96 Consecutive Hours (ICD-10-PCS; 2017-08-23 23:58)
PROC: 06HM33Z Insertion of Infusion Device into Right Femoral Vein, Percutaneous Approach (ICD-10-PCS; 2017-08-23 23:58)
PROC: 0BH18EZ Insertion of Endotracheal Airway into Trachea, Via Natural or Artificial Opening Endoscopic (ICD-10-PCS; 2017-08-23 23:58)
PROC: 30233N1 Transfusion of Nonautologous Red Blood Cells into Peripheral Vein, Percutaneous Approach (ICD-10-PCS; 2017-08-23 23:58)
DX: A41.9 Sepsis, unspecified organism (principal); K40.40 Unilateral inguinal hernia, with gangrene, not specified as recurrent; R65.21 Severe sepsis with septic shock; N17.0 Acute kidney failure with tubular necrosis; J96.01 Acute respiratory failure with hypoxia; J69.0 Pneumonitis due to inhalation of food and vomit; G93.41 Metabolic encephalopathy; E87.2 Acidosis; I12.0 Hypertensive chronic kidney disease with stage 5 chronic kidney disease or end stage renal disease; E87.1 Hypo-osmolality and hyponatremia; F11.23 Opioid dependence with withdrawal; E87.5 Hyperkalemia; F17.200 Nicotine dependence, unspecified, uncomplicated; F32.9 Major depressive disorder, single episode, unspecified; G89.4 Chronic pain syndrome; E86.0 Dehydration; F41.9 Anxiety disorder, unspecified; R73.9 Hyperglycemia, unspecified; E16.2 Hypoglycemia, unspecified; E83.51 Hypocalcemia; E88.09 Other disorders of plasma-protein metabolism, not elsewhere classified; F10.10 Alcohol abuse, uncomplicated; E83.42 Hypomagnesemia; N18.9 Chronic kidney disease, unspecified; D64.9 Anemia, unspecified
CPT/HCPCS: 31500; 36430; 36569; 36600; 70450; 71045; 74176; 76604; 76775; 76937; 80048; 80053; 80061; 80202; 80306; 80307; 81001; 81003; 82330; 82550; 82553; 82570; 82803; 82962; 83036; 83605; 83690; 83735; 84100; 84134; 84145; 84300; 84478; 84484; 84560; 85014; 85018; 85025; 85610; 85730; 86140; 86850; 86900; 86901; 86920; 87040; 87070; 87075; 87081; 87086; 87400; 88304; 88307; 89190; 89220; 92610; 93005; 94002; 94003; 94640; 94664; 94770; 96372; 96374; 96375; 97110; 97116; 97162; 99285-25; J1940